=== PATIENT | female | born 1935 | race Hispanic/Latino ===

== ENCOUNTER → 2019-05-31 | Outpatient (CLI) | payer MEDICARE ==
[~2019-05-31] MED LIST: CARVEDILOL12.5 MG PO; CYCLOBENZAPRINE10 MG PO; GABAPENTIN300 MG PO; HYDRALAZINE HCL50 MG PO; HYDROCHLOROTHIA25 MG PO; IBUPROFEN400 MG PO; MONTELUKAST SOD10 MG PO; OMEGA 3 1,0001 EACH PO; PANTOPRAZOLE SO40 MG PO; RANITIDINE HCL150 M1 PO; SIMVASTATIN20 MG PO; SUCRALFATE1 GM PO; TEMAZEPAM15 MG PO
--- NOTE | 2019-06-03 15:06 | Diagnostic Imaging Report ---
EXAMINATION: CHEST 2 VIEWS INDICATION: Cough COMPARISON: None FINDINGS: LINES/TUBES:None LUNGS:The lungs are moderately inflated. No focal consolidation or pulmonary edema. PLEURA:No pleural effusion or pneumothorax. MEDIASTINUM:The cardia mediastinal silhouette is enlarged. Atherosclerotic calcifications of the thoracic aorta. BONES/SOFT TISSUES:Postoperative changes of right shoulder arthroplasty. Partial visualization of posterior lumbar fusion hardware. Degenerative changes of the thoracic spine. ABDOMEN:No free air under the diaphragm. IMPRESSION: No focal pneumonia or pulmonary edema. Cardiomegaly. Signed by: Robert Linder MD on 05/31/2019 12:42 PM
== END ==
LOC: RAD 11:30
PROVIDERS: ATTEND Internal Medicine
DX: R05 Cough (principal)
CPT/HCPCS: 71046

== ENCOUNTER 2019-06-10 13:44 | Observation (INO) | payer MEDICARE ==
[~2019-06-10] VITALS: Ht 157.5 cm; Wt 88.0 kg
--- OUTSIDE RECORDS SUMMARY | 2019-06-10 13:47 | XMS REPORT ---
Author Author [facility] Address Unknown Phone Unavailable Care Team Providers Care Conversion Developer Name Role Phone JUSTINO BRUSH Unavailable Unavailable Problems This patient has no known problems. Allergies, Adverse Reactions, Alerts This patient has no known allergies or adverse reactions. Medications This patient has no known medications. Results Test Description Test Time Test Comments Text Results Atomic Results Result Comments CHEST 2 VIEWS 2019-05-31 12:40:00 [place] [id number] Patient Name: ARNULFO DILLARD MR #: [id number] : 1935 Age/Sex: 83/F Req #: [id number] Adm Physician: Ordered by: JUSTINO BRUSH MD Report #: [id number] Location: [facility] Room/Bed: Procedure: [id number] DX/CHEST 2 VIEWS Exam Date: 05/31/19 Exam Time: 1210 REPORT STATUS: Signed EXAMINATION: CHEST 2 VIEWS INDICATION: Cough CO MPARISON: None FINDINGS: LINES/TUBES:None LUNGS:The lungs are moderately inflated. No focal consolidation or pulmonary edema. PLEURA:No pleural effusion or pneumothorax. MEDIASTINUM:The cardia mediastinal silhouette is enlarged. Atherosclerotic calcifications of the thoracic aorta. BONES/SOFT TISSUES:Postoperative changes of right shoulder arthroplasty. Partial visualization of posterior lumbar fusion hardware. Degenerative changes of the thoracic spine. ABDOMEN:No free air under the diaphragm. IMPRESSION: No focal pneumonia or pulmonary edema. Cardiomegaly. Signed by: Yusuf Velazquez MD on 05/31/2019 12:42 PM Dictated By: YUSUF VELAZQUEZ MD [id number] Transcribed By: MATTHEW on 05/31/19 1242 COPY TO: JUSTINO BRUSH MD
[2019-06-10 14:23] LABS: BASOPHILS % 0.4 % (0.0-1.0); EOSINOPHILS # (AUTO) 0.3 (0.0-0.4); EOSINOPHILS % 3.5 % (0.0-6.0); HEMOGLOBIN 10.3 g/dL (12.0-16.0); LYMPHOCYTES # (AUTO) 2.1 (1.0-3.2); LYMPHOCYTES % 28.7 % (18.0-39.1); MEAN CORPUSCULAR HEMOGLOBIN 29.9 pg (28-32); MEAN CORPUSCULAR HGB CONC 33.2 g/dL (31-35); MEAN CORPUSCULAR VOLUME 90.1 fL (81-99); MONOCYTES % 13.7 % (4.4-11.3); NEUTROPHILS # (AUTO) 3.8 (2.1-6.9); NEUTROPHILS % 53.1 % (38.7-80.0); PLATELET COUNT 198 x10e3/uL (140-360); RED BLOOD COUNT 3.44 x10e6/uL (3.6-5.1); RED CELL DISTRIBUTION WIDTH 13.8 % (11.7-14.4)
[2019-06-10 15:09] LABS: ALANINE AMINOTRANSFERASE 27 IU/L (0-55); ALBUMIN 3.4 g/dL (3.5-5.0); ALBUMIN/GLOBULIN RATIO 1.1 (0.8-2.0); ALKALINE PHOSPHATASE 77 IU/L (40-150); ANION GAP 10.6 mmol/L (8-16); BLOOD UREA NITROGEN 15 mg/dL (7-26); BUN/CREATININE RATIO 17 (6-25); CALCIUM 9.7 mg/dL (8.4-10.2); CARBON DIOXIDE 28 mmol/L (22-29); CHLORIDE 101 mmol/L (98-107); CREATINE KINASE 209 IU/L (29-168); CREATININE, SERUM 0.88 mg/dL (0.57-1.11); EST GLOMERULAR FILTRATION RATE > 60 ML/MIN (60-); GLUCOSE 88 mg/dL (74-118); POTASSIUM 3.6 mmol/L (3.5-5.1); SODIUM 136 mmol/L (136-145)
[2019-06-10] MEDS ORDERED: ONDANSETRON HCL INJ 2MG/ML 2ML 2 MG/ML VIAL IV PRN (16:00)
[2019-06-10] MEDS ORDERED: MORPHINE SULFATE 2 MG/ML SYR 1ML IV PRN (16:00)
[2019-06-10] MEDS ORDERED: MORPHINE SULFATE INJ 4 MG/ML INJ 1ML IV PRN (16:15)
[2019-06-10] MEDS ORDERED: HYDROCHLOROTHIA25 MG PO (16:22)
[2019-06-10] MEDS ORDERED: CARVEDILOL12.5 MG PO (16:22)
[2019-06-10] MEDS ORDERED: MONTELUKAST SOD10 MG PO (16:22)
[2019-06-10] MEDS ORDERED: CYCLOBENZAPRINE10 MG PO (16:22)
[2019-06-10] MEDS ORDERED: GABAPENTIN300 MG PO (16:22)
[2019-06-10] MEDS ORDERED: IBUPROFEN400 MG PO (16:22)
[2019-06-10] MEDS ORDERED: OMEGA 3 1,0001 EACH PO (16:22)
[2019-06-10] MEDS ORDERED: SIMVASTATIN20 MG PO (16:22)
[2019-06-10] MEDS ORDERED: TEMAZEPAM15 MG PO (16:22)
[2019-06-10] MEDS ORDERED: SUCRALFATE1 GM PO (16:22)
[2019-06-10] MEDS ORDERED: PANTOPRAZOLE SO40 MG PO (16:22)
[2019-06-10] MEDS ORDERED: HYDRALAZINE HCL50 MG PO (16:22)
[2019-06-10] MEDS ORDERED: RANITIDINE HCL150 M1 PO (16:22)
--- NOTE | 2019-06-10 16:34 | NUR ---
SHAMPOOER AT BEDSIDE
[2019-06-10] MEDS ORDERED: HYDRALAZINE HCL 20 MG/ML VIAL IV ONE (16:42)
--- NOTE | 2019-06-10 17:10 | NUR ---
PATIENT AMBULATED TO BATHROOM WITH WALKER
--- NOTE | 2019-06-10 17:17 | Diagnostic Imaging Report ---
EXAMINATION: CHEST 2 VIEWS INDICATION: Chest pain COMPARISON: None FINDINGS: Study is limited by underpenetration and patient body habitus. LINES/TUBES:EKG leads overlie the chest. LUNGS:The lungs are moderately inflated. Patchy opacity at the left lung base. PLEURA:No pleural effusion or pneumothorax. MEDIASTINUM:Cardiomediastinal silhouette is stably enlarged. BONES/SOFT TISSUES:No acute osseous injury. Status post right shoulder arthroplasty. ABDOMEN:No free air under the diaphragm. IMPRESSION: Low lung volumes. Patchy opacity at the left lung base, more likely subsegmental atelectasis than superimposed aspiration or pneumonia. Stable cardiomegaly. Signed by: Robert Linder MD on 06/10/2019 5:14 PM
--- NOTE | 2019-06-10 18:30 | NUR ---
PATIENT PLACED ON HOSPITAL BED
--- NOTE | 2019-06-10 18:42 | Diagnostic Imaging Report ---
EXAMINATION: CT of the chest with contrast, PE protocol. TECHNIQUE: Spiral CT images of the chest were performed from the lung apices through the level of the adrenal glands after the IV administration of 100 cc of Isovue 370. Thin section reconstructions were obtained with special concentration on the pulmonary arteries. Coronal and sagittal reformatted images were performed. COMPARISON: <none> CLINICAL HISTORY:Chest pressure, chest pain, elevated the dimer DISCUSSION: Exam limited as it was acquired during partial expiratory phase Lungs: No filling defects are identified in the main, right or left pulmonary arteries to their segmental levels, to suggest pulmonary embolism. Increased attenuation of the lung parenchyma secondary to scan acquired during partial expiratory phase. No consolidation, nodules or masses. Linear opacity in the left upper lobe (coronal image 57), likely representing subsegmental atelectasis or scarring. Airways are clear, without endobronchial lesions. Pleura: <There is no evidence of pleural effusion or pneumothorax.> Heart and mediastinum: Thyroid is unremarkable. Heart size is normal. No pericardial effusion. Atherosclerotic calcification of the coronary arteries and thoracic aorta. Aorta is nonaneurysmal. Main pulmonary artery normal in caliber. Lymph nodes: No mediastinal, hilar or axillary adenopathy. Abdomen: The visualized portions of the spleen, pancreas, adrenals and kidneys are unremarkable. Mild nodularity of the hepatic contour. No focal lesions in the visualized portions of this noncontrast exam. Gallbladder is unremarkable Bones and soft tissues: No aggressive lytic lesions. Multiple level degenerative disc changes in the thoracic spine. Soft tissues are grossly unremarkable. IMPRESSION: 1. No CT evidence of pulmonary embolism. 2. No consolidation, pulmonary nodules or masses. Left upper lobe subsegmental atelectasis versus scarring. 3. Mild nodularity of the hepatic contour suggesting cirrhosis. Signed by: Dr. Stuart Gonzalez M.D. on 06/10/2019 6:38 PM
[2019-06-10] MEDS ORDERED: IOPAMIDOL 370 MG/ML 200 ML INFUS..BTL INJ ONE (18:47)
[2019-06-10] MEDS ORDERED: SODIUM CHLORIDE 0.9% 50ML 50 ML ONE (18:47)
--- NOTE | 2019-06-10 20:04 | NUR ---
PT PLACED ON TELE BOX 21
[2019-06-10 20:27] VITALS: BP 138/66
--- NOTE | 2019-06-10 20:27 | NUR ---
PT ARRIVED ON THE FLOOR VIA WHEELCHAIR AT 2026. RESPIRATION IS EVEN AND UNLABORED, NO DISTRESS NOTED. PT ORIENTED TO ROOM, BED IN THE LOWEST POSITION, LOCKED, BED ALARM ON, AND CALL LIGHT WITHIN REACH. ADMISSION AND HEAD TO TOE ASSESSMENT COMPLETE. WILL CONTINUE TO MONITOR.
[2019-06-10 20:30] VITALS: BP 138/66
[2019-06-10 23:27] LABS: CREATINE KINASE MB 3.7 ng/mL (0-5.0)
[2019-06-10 23:54] VITALS: BP 138/66
[2019-06-11] VITALS (8 sets, daily range): BP systolic 115–160; BP diastolic 55–84
[2019-06-11 06:15] LABS: CREATINE KINASE MB 3.3 ng/mL (0-5.0)
--- NOTE | 2019-06-11 06:50 | NUR ---
Walking rounds done and report received. Patient is awake, alert and able to make needs known. She currently denies CP at this time. Tele #[phone], [phone]. POC discussed. Patient instructed to call for assistance as needed and verbalized understanding. Bed in lowest position, locked and call murry within reach.
[2019-06-11] MEDS: OMEGA 3 POLYUNSAT FATTY ACIDS 1000 MG SOFTGEL PO SCH ×3 (13:00→20:24)
--- NOTE | 2019-06-11 14:51 | Diagnostic Imaging Report ---
EXAM: Complete Abdominal Ultrasound INDICATION: Not provided. COMPARISON: None. TECHNIQUE: Transverse and longitudinal images of the upper abdomen were obtained. FINDINGS: Liver: Size: 14.1 cm in the right midclavicular line, normal Appearance: Normal echogenicity, nodular contour Mass: No focal masses Spleen: Size: 11.5 cm in length, normal Echogenicity: Normal Mass: No focal masses Gallbladder: Stones/Sludge: None Wall: 0.3 cm Appearance: No pericholecystic fluid or hydrops. Sonographic Wise's Sign: Negative Bile Ducts: Intrahepatic Ducts: No dilatation Extrahepatic Ducts: Common bile duct measures 0.3 cm, no dilatation Pancreas: Not well visualized. Right Kidney: Size: 10 cm Echogenicity: Normal Parenchymal thickness: Decreased Collecting System: No hydronephrosis Stone: None Cyst/Mass: Midpole cyst measuring 1.6 x 1.3 x 1.4 cm. Left Kidney: Size: 9.8 cm Echogenicity: Normal Parenchymal thickness: Normal Collecting System: No hydronephrosis Stone: None Cyst/Mass: Midpole simple cyst measuring 3.6 x 3.5 x 3.4 cm. Vessels: Aorta: Visualized aorta is unremarkable. Distal aorta is not well visualized. Inferior Vena Cava: Visualized portions are normal Main Portal Vein: 0.9 cm, normal size with hepatopetal flow. Free Fluid: No ascites or pleural effusion IMPRESSION: Nodular liver contour, suggestive of cirrhotic changes. No focal masses. Bilateral simple renal cysts. Mild right renal cortical atrophy. Signed by: Dr. Oscar Robbins MD on 06/11/2019 2:47 PM
[2019-06-11] MEDS ORDERED: FUROSEMIDE INJ 10 MG/ML 4 ML VIAL IV NR (15:00)
[2019-06-11] MEDS: FAMOTIDINE 20 MG TAB PO SCH (17:09)
[2019-06-11] MEDS: SUCRALFATE 1 GM TAB PO SCH (17:09)
[2019-06-11] MEDS: HYDRALAZINE HCL 25 MG TAB PO SCH (17:10)
[2019-06-11] MEDS: GABAPENTIN 300 MG CAP PO SCH (17:10)
[2019-06-11] MEDS: CARVEDILOL 12.5 MG TAB PO SCH (17:10)
--- NOTE | 2019-06-11 18:19 | Consultation ---
DATE OF CONSULTATION: 06/11/2019 Cardiology Consultation REASON FOR CONSULTATION: Chest discomfort and shortness of breath. HISTORY OF PRESENT ILLNESS: Ms. Leach is an 83-year-old lady with past medical history of hypertension, hypercholesteremia, GERD, hiatal hernia, and obesity, who is hospitalized with two-day history of progressively worsening abdominal bloating, chest pressure sensation, difficulty breathing, three pillow orthopnea, and swelling in both of her legs. She reports exercising at a very low workload that results in worsened breathing and overall has pretty constant chest pressure, substernal, no radiation, constant, no exacerbating or alleviating factors. Overall, she was in her usual state of health up until about a week ago. She was instructed to stop her diuretic therapy on account of worsening kidney function. Since that time, she has been progressively declining in her functional state. PAST MEDICAL HISTORY: 1. Hypertension, essential. 2. Hypercholesteremia. 3. Gastritis/hiatal hernia. PAST SURGICAL HISTORY: 1. History of lumbar spine surgery. 2. History of bilateral total knee replacement surgery. 3. History of right arm surgery. FAMILY HISTORY: Mother at 80 with a pulmonary embolism. Father at young age, had liver cancer. No premature family history of coronary artery disease. SOCIAL HISTORY: She is a lifelong nonsmoker. Reports one cup of wine with meals. Denies any illicit drug use. ALLERGIES: NO KNOWN DRUG ALLERGIES. HOME MEDICATIONS: Include: 1. Coreg 25 mg b.i.d. 2. Cyclobenzaprine 20 mg daily. 3. Gabapentin 300 mg b.i.d. 4. Hydralazine 50 mg b.i.d. 5. Hydrochlorothiazide 25 mg daily. 6. Ibuprofen 800 mg b.i.d. 7. Singulair 10 mg daily. 8. [place]-3 one tablet daily. 9. Protonix 20 mg daily. 10. Zantac 150 mg b.i.d. 11. Zocor 20 mg daily. 12. Carafate 1 g t.i.d. 13. Temazepam 30 mg at bedtime. REVIEW OF SYSTEMS: GENERAL: Denies any fevers or chills. Positive for weight gain. HEENT: No headaches, visual complaints, sore throat, or stuffy nose. RESPIRATORY: Denies any pleuritic component to the chest pain, has occasional cough. Has severe exertional dyspnea as noted above. CARDIOVASCULAR: As per HPI. Denies any subjective palpitations, syncope, or near syncope. GI: Positive for GERD. No bright red blood per rectum, melena, or hematemesis. : Denies any dysuria, pyuria, or change in urinary frequency. MUSCULOSKELETAL: Positive for arthritis in lower back and knees. HEMATOLOGIC: Positive for easy bruising. No bleeding. ID: No known infectious issues. NEUROLOGIC: Denies any focal weakness, numbness, tingling, seizures, headaches, TIA, or stroke. Remainder review of systems negative, otherwise as mentioned. PHYSICAL EXAMINATION: VITAL SIGNS: Height of 62 inches, weight of 204 pounds, BMI is 37.4. Temperature of 96.7, pulse 71, respiratory rate 18, blood pressure 149/65, and O2 saturation 96% on room air. GENERAL: This is a well-nourished, obese lady, who is currently in no apparent distress. HEENT: Normocephalic and atraumatic. Pupils are equal, round, and reactive to light. Extraocular movements are intact. Oropharynx is clear. NECK: Obese. Limited exam due to habitus. Faint bilateral carotid bruits. CARDIOVASCULAR: Regular rate and rhythm. Normal S1 and S2, 3/6 systolic ejection murmur at the right upper sternal border. LUNGS: Show diminished bibasilar breath sounds and diminished air entry with some slight crackles. ABDOMEN: Soft, nontender, and obese. Normoactive bowel sounds. Limited exam secondary to habitus. BACK: No costovertebral angle tenderness. EXTREMITIES: Warm with 2+ edema to the mid shins level. There are bilateral total knee replacement scars. 1+ pedal pulses. NEUROLOGIC: Cranial nerves II through XII are intact. Strength is 5/5. Grossly nonfocal. PSYCHIATRIC: Normal fluent speech. Appropriate affect. No anxiety or delusions. LABORATORY DATA: White count of 7.2, hemoglobin 10.3, hematocrit 31.0, and platelets of 198. Sodium 136, potassium 3.6, chloride 101, bicarbonate 28, BUN 15, creatinine 0.88, glucose of 88, calcium of 9.7, AST 27, ALT 27, alkaline phosphatase 77, total protein 6.6, and albumin 3.4. BNP is 218. Troponin went from less than 0.001 to 0.004 to 0.013. D-dimer is 543. Chest x-ray shows low lung volumes and patchy left lung base opacity. Chest CT shows no PE, no consolidation or masses. Left upper lobe segmental atelectasis, mild nodularity of the hepatic contour concerning for cirrhosis. EKG reveals normal sinus rhythm, inferior Q-waves in leads III and aVF, but no ST-T wave changes. DIAGNOSES: 1. Acute on chronic decompensated diastolic heart failure by history and exam. 2. Chest discomfort with wide differential diagnosis. 3. Bilateral lower extremity edema. 4. Suspicion for aortic stenosis. 5. Morbid obesity. 6. Hypertension. 7. Hypercholesteremia. PLAN/RECOMMENDATIONS: 1. From a cardiovascular standpoint, we will go ahead and give her 80 mg IV Lasix x1 here and re-evaluate her symptoms tomorrow morning. We will check labs in the a.m. 2. Aggressive risk factor modification and medical therapy. 3. Reviewed echocardiogram showing preserved left ventricular function, however, there appears to be aortic valve that is trileaflet and significant calcification on it. By the way, the valve leaflet excursions are suspect at least moderate aortic stenosis, however, quality of interrogation of was inadequate. We will repeat limited echo with goal towards re-evaluating stenosis severity. 4. Agree with current antihypertensive regimen, which include beta tony, hydralazine, etc. 5. Telemetry monitoring. 6. We will continue to follow this patient. Thank you for this referral. MD REYES Diaz/YONI /[id number]
--- NOTE | 2019-06-11 18:45 | NUR ---
Received bedside report from day shift RN. The patient is laying on the bed, not in distress. Bed height low, call light within reach, wheels locked, and side rails up x2.
--- NOTE | 2019-06-11 19:00 | NUR ---
Walking rounds done. call murry within reach.
[2019-06-11] MEDS: SIMVASTATIN 20 MG TAB PO SCH (20:24)
[2019-06-12] VITALS (7 sets, daily range): BP systolic 107–145; BP diastolic 52–71
[2019-06-12 06:03] LABS: BASOPHILS % 0.5 % (0.0-1.0); EOSINOPHILS # (AUTO) 0.2 (0.0-0.4); HEMATOCRIT 31.7 % (34.2-44.1); HEMOGLOBIN 10.3 g/dL (12.0-16.0); LYMPHOCYTES # (AUTO) 1.7 (1.0-3.2); LYMPHOCYTES % 27.9 % (18.0-39.1); MEAN CORPUSCULAR HEMOGLOBIN 30.1 pg (28-32); MEAN CORPUSCULAR HGB CONC 32.5 g/dL (31-35); MEAN CORPUSCULAR VOLUME 92.7 fL (81-99); MONOCYTES % 15.8 % (4.4-11.3); NEUTROPHILS # (AUTO) 3.2 (2.1-6.9); NEUTROPHILS % 52.6 % (38.7-80.0); PLATELET COUNT 185 x10e3/uL (140-360); RED BLOOD COUNT 3.42 x10e6/uL (3.6-5.1); RED CELL DISTRIBUTION WIDTH 14.4 % (11.7-14.4)
[2019-06-12 06:22] LABS: ALBUMIN 3.1 g/dL (3.5-5.0); ANION GAP 12.3 mmol/L (8-16); CALCIUM 9.4 mg/dL (8.4-10.2); CREATININE, SERUM 0.93 mg/dL (0.57-1.11); POTASSIUM 3.3 mmol/L (3.5-5.1)
[2019-06-12 06:23] LABS: CHOL/HDL RATIO 3.8 (3.0-3.6)
--- NOTE | 2019-06-12 06:45 | NUR ---
Walking rounds and report received. Patient is resting in bed without any complaints voiced. Bed in lowest position, locked, bed alarm on and call murry within reach.
[2019-06-12 07:13] LABS: THYROID STIMULATING HORMONE 1.278 uIU/mL (0.350-4.940)
[2019-06-12] MEDS: FAMOTIDINE 20 MG TAB PO SCH ×2 (08:00→16:53)
[2019-06-12] MEDS: SUCRALFATE 1 GM TAB PO SCH ×3 (08:00→16:53)
[2019-06-12] MEDS ORDERED: POTASSIUM CHLORIDE 20 MEQ TAB CR PO NR ×2 (08:06→11:15)
[2019-06-12] MEDS: HYDRALAZINE HCL 25 MG TAB PO SCH ×2 (08:23→16:46)
[2019-06-12] MEDS: CARVEDILOL 12.5 MG TAB PO SCH ×2 (08:23→16:46)
[2019-06-12] MEDS: GABAPENTIN 300 MG CAP PO SCH ×2 (08:24→16:53)
[2019-06-12] MEDS: OMEGA 3 POLYUNSAT FATTY ACIDS 1000 MG SOFTGEL PO SCH ×4 (08:24→20:30)
[2019-06-12] MEDS ORDERED: FUROSEMIDE 40 MG TAB PO SCH (09:00)
[2019-06-12] MEDS ORDERED: MONTELUKAST SODIUM 10 MG TAB PO SCH (09:00)
[2019-06-12] MEDS ORDERED: PANTOPRAZOLE SOD 40 MG TABEC PO SCH (09:00)
[2019-06-12] MEDS ORDERED: CYCLOBENZAPRINE HCL 10 MG TAB PO SCH (09:00)
--- NOTE | 2019-06-12 15:30 | NUR ---
PER DR. RODRIGEZ PATIENT MAY GO HOME IF DR. GALVAN CLEARS TO DISCHARGE HOME.
--- NOTE | 2019-06-12 18:13 | NUR ---
Dr. Harris called to clarify if patient is cleared from cardiology standpoint to go home. Unable to leave message on phone, voicemail is full.
--- NOTE | 2019-06-12 18:45 | NUR ---
Received bedside report from day shift RN. The patient is laying on the bed, not in distress. Bed height low, call light within reach, wheels locked, and side rails up x2. The patient will be discharged later tonight.
--- NOTE | 2019-06-12 19:00 | NUR ---
PER DR. BANUELOS PATIENT MAY GO HOME TODAY. SHE WILL CONTINUE HCTZ FOR NOW, AND FOLLOW UP WITH DR. GALVAN IN THE OFFICE ON 06/15/19 OR 06/16/19.
[2019-06-12] MEDS: SIMVASTATIN 20 MG TAB PO SCH (20:30)
[2019-06-12] MEDS ORDERED: TEMAZEPAM 15 MG CAP PO SCH (21:00)
--- NOTE | 2019-06-12 21:40 | NUR ---
Personal belongings packed and taken by daughter. Telemetry device removed and IV as well. Catheter intact. Band-aid placed over. Patient was taken with WC to the front lobby to the daughter's vehicle. Discharge documents provide to the patient and signed.
--- NOTE | 2019-07-15 00:44 | Discharge Summary ---
CHIEF COMPLAINT: Mid chest pain. FINAL DIAGNOSES: Diastolic congestive failure, hypertension, hiatal hernia, hypokalemia. HOSPITAL COURSE: An 83-year-old female with known history of hypertension, GERD, hiatal hernia, brought to the ER with a 2-day history of intermittent mid chest pain, described as pressure associated with shortness of breath. She describes episode on the day of admission was more severe. No diaphoresis. No nausea or vomiting, but the patient has had postprandial bloating. She was monitored and evaluated in the emergency room. Studies were carried out. The patient was revealing a distended, nontender abdomen. Review of x-rays and review of lab led to admission regarding chest pain, shortness of breath, hypertension, hiatal hernia, GERD, rule out gallbladder disease. With admission, we will be monitoring cardiac enzymes. We will be initiating PPI treatments. She will be undergoing evaluation for gallbladder. With admission regarding the complaints of chest discomfort along with shortness of breath, the patient did undergo cardiac followup and final evaluation by Dr. Harris, impression was made of [id number] decompensated diastolic heart failure by history and exam. Chest discomfort with a wide differential diagnosis, bilateral lower extremity edema, suspicion for aortic stenosis, morbid obesity, hypertension, hypercholesterolemia. He stated from a cardiovascular standpoint, we will begin treatment with 80 mg of Lasix. Re-evaluate symptoms. Reassess labs. Aggressive risk factor modification and medical therapy. Review of an echocardiogram appears to show an aortic valve that is trileaflet and significant calcification on it. The findings suspect for at least moderate aortic stenosis; however, quality of interrogation of was inadequate. We will be repeating the echo. Agree with current cardiac medications. The patient began treatment on the Med-Surg floor, was on a cardiac diet. Vital signs are being watched closely. Blood pressure medications will be adjusted for better control. Laboratory studies are being carried out. The patient was feeling much better, was in no acute distress, was continued on her IV Lasix, was having issues with hypokalemia and the patient was receiving replenishment medications. The patient responding further well, was cleared for discharge and was released home. IMAGING: Chest x-ray shows low lung volumes. Patchy opacity in the left lung base, more likely subsegmental atelectasis and superimposed aspiration pneumonia. Stable cardiomegaly. Chest CT shows no CT evidence of pulmonary embolism. No consolidation, pulmonary nodules. Or masses. Left upper lobe segmental atelectasis versus scarring. Mild nodularity of the hepatic contour suggesting cirrhosis. Abdomen ultrasound finding shows nodular liver contour suggestive of cirrhotic changes. No focal masses. Bilateral simple renal cysts. Mild right renal cortical atrophy. Lower extremity Dopplers showed no evidence of DVT bilaterally. LABORATORY STUDIES: Initial CBC; normal white count, H and H were 10.3 and 31.0, platelets normal. Followup CBC was basically normal, the same in comparison. Chemistries; initial panel shows stable electrolytes. Kidney function stable. Glucose normal. Three sets of cardiac enzymes to be stable. BNP is 218.4. Potassium did fall to 3.3, was then started on replenishment medications. Final glucose 131. The patient continued to show stability, was cleared for discharge by Cardiology, was released home in good condition. IVs were discontinued. With discharge, the patient continued on a cardiac diet. No equipments or supplies were necessary. No drain or Zhou was needed. Activity level as directed by me as well as by Dr. Harris. The patient will be returning to her PCP within 7 to 10 days. She will be following back up with Dr. Harris for his instruction for further cardiac evaluation. She will be continued on carvedilol 25 mg p.o. b.i.d., cyclobenzaprine 10 mg two tablets p.o. daily, gabapentin 300 mg p.o. b.i.d., hydralazine 50 mg p.o. b.i.d., hydrochlorothiazide 25 mg p.o. daily, ibuprofen 800 mg p.o. b.i.d., montelukast sodium 10 mg p.o. daily, omega-3 fish oil 1000 mg softgel tablet one tablet q.i.d., Protonix 40 mg half a tablet p.o. daily, ranitidine 150 mg p.o. b.i.d., simvastatin 20 mg p.o. daily, sucralfate 1 g p.o. t.i.d., temazepam 30 mg p.o. daily at bedtime for insomnia. The patient will be contacting her PCP if they have questions or concerns or recurrence of similar symptoms. Dictated by OSKAR Landis MD HIPOLITO Turner/YONI /[id number]
== END 2019-06-12 21:40 | disposition home or self-care (01) ==
LOC: ER 13:44 → ERHOLD 15:55 → MED/SURG3 20:38
DX: I11.0 Hypertensive heart disease with heart failure (principal); I50.33 Acute on chronic diastolic (congestive) heart failure; R07.9 Chest pain, unspecified; I49.3 Ventricular premature depolarization; K21.9 Gastro-esophageal reflux disease without esophagitis; K44.9 Diaphragmatic hernia without obstruction or gangrene; E78.00 Pure hypercholesterolemia, unspecified; E66.9 Obesity, unspecified; Z68.35 Body mass index [BMI] 35.0-35.9, adult
CPT/HCPCS: 36415 ×3; 71046; 71260; 76700; 80053 ×2; 80061; 82550 ×2; 82553 ×2; 83880; 84443; 84484 ×2; 85025 ×2; 85379; 93005; 93306; 93308; 93970; 99284; G0378 ×3; J0360; J1940; Q9967; S0164

== ENCOUNTER → 2019-06-10 | Outpatient (CLI) | payer MEDICARE, OTHER | LOC: US 13:24 | PROVIDERS: ATTEND Internal Medicine | DX: N18.3 Chronic kidney disease, stage 3 (moderate) (principal) ==

== ENCOUNTER 2019-07-28 11:55 | Emergency (ER) | payer OTHER, MEDICARE ==
[~2019-07-28] VITALS: Ht 157.5 cm; Wt 88.0 kg
[~2019-07-28 11:55] MED LIST changes: -CARVEDILOL3.125 MG PO; -ESIDRIX25 MG PO; -FUROSEMIDE40 MG PO; -KLOR-CON 1010 MEQ PO; -MELATONIN1 MG PO; -PANTOPRAZOLE SO20 MG PO; -SIMVASTATIN10 MG PO
--- NOTE | 2019-07-28 12:56 | Diagnostic Imaging Report ---
CT BRAIN WO, CT CERVICAL SPINE WO HISTORY: Fall COMPARISON: None. TECHNIQUE: Axial noncontrast CT images were obtained through the head and cervical spine. Coronal and sagittal reconstructions obtained from the axial data. One or more of the following dose reduction techniques were used: Automated exposure control, adjustment of the mA and/or kV according to patient size, and/or utilization of iterative reconstruction technique. DISCUSSION: HEAD CT: Scalp/Skull: Unremarkable. Brain sulci: Mildly prominent. Ventricles: Compensatory dilatation. Extra-axial spaces: No masses or fluid collections. Carotid siphon calcifications are present. Parenchyma: Mild periventricular white matter hypodensities are likely chronic microvascular ischemic changes. Otherwise, no masses, hemorrhage, or large vascular territory acute infarct. Dural sinuses: No abnormal densities. Sellar/Suprasellar region: Intact. Skull base: Intact. Incidental findings: None. CERVICAL SPINE CT: Bone demineralization limits evaluation. Cervical lordosis is straightened. There is no significant scoliosis. No definite acute fracture or compression deformity is seen. The craniocervical junction is intact. No gross spinal canal masses are seen. The paravertebral and paraspinal soft tissues are unremarkable. Advanced lower cervical spondylotic changes are present. There is at least mild canal stenosis at C5-C6 due to posterior disc ossify complex. Multilevel bilateral facet arthrosis and atlantoaxial arthrosis are also present. Minimal grade 1 anterolisthesis of C7 on T1 and T1 on T2 are likely due to facet arthrosis. Incidental findings: Mildly calcified bilateral carotid arteries have a retropharyngeal course. IMPRESSION: Head CT: 1. No acute intracranial abnormalities. 2. Mild supratentorial chronic microvascular ischemic change and generalized cerebral volume loss. Cervical Spine CT: 1. No acute osseous abnormalities in the cervical spine. 2. Advanced lower cervical spondylosis. Signed by: Dr. Hugo Bundy M.D. on 07/28/2019 12:53 PM
--- NOTE | 2019-07-28 13:18 | Diagnostic Imaging Report ---
EXAMINATION: CHEST 2 VIEWS INDICATION: Shortness of breath COMPARISON: Chest radiograph of 06/10/2019 FINDINGS: LINES/TUBES:None LUNGS:The lungs are well-inflated. No focal consolidation or pulmonary edema. PLEURA:No pleural effusion or pneumothorax. MEDIASTINUM:The cardiomediastinal silhouette appears normal in size and shape. Atherosclerotic calcifications of the thoracic aorta. BONES/SOFT TISSUES:Partial visualization of right shoulder arthroplasty hardware. Severe degenerative changes of the left glenohumeral joint. Multilevel degenerative changes of the visualized spine. ABDOMEN:No free air under the diaphragm. IMPRESSION: No focal pneumonia or pulmonary edema. Severe left glenohumeral joint degenerative changes. Signed by: Robert Linder MD on 07/28/2019 1:15 PM
== END 2019-07-28 13:48 | disposition home or self-care (01) ==
LOC: ER 11:55
DX: S00.83XA Contusion of other part of head, initial encounter (principal); S80.02XA Contusion of left knee, initial encounter; S80.01XA Contusion of right knee, initial encounter; W01.0XXA Fall on same level from slipping, tripping and stumbling without subsequent striking against object, initial encounter; Y93.01 Activity, walking, marching and hiking; Y92.238 Other place in hospital as the place of occurrence of the external cause; I10 Essential (primary) hypertension; K21.9 Gastro-esophageal reflux disease without esophagitis; E78.5 Hyperlipidemia, unspecified
CPT/HCPCS: 70450; 71046; 72125; 99284

== ENCOUNTER → 2019-07-28 | Outpatient (CLI) | payer MEDICARE ==
[~2019-07-28] MED LIST changes: +CARVEDILOL3.125 MG PO; +ESIDRIX25 MG PO; +FUROSEMIDE40 MG PO; +KLOR-CON 1010 MEQ PO; +MELATONIN1 MG PO; +PANTOPRAZOLE SO20 MG PO; +SIMVASTATIN10 MG PO
== END ==
LOC: RAD 11:31
PROVIDERS: ATTEND Internal Medicine
DX: R06.02 Shortness of breath (principal)

== ENCOUNTER 2019-08-06 18:09 | Inpatient (IN) | payer MEDICARE ==
[~2019-08-06] VITALS: Ht 157.5 cm; Wt 86.2 kg
[2019-08-06 18:39] LABS: BASOPHILS % 0.4 % (0.0-1.0); EOSINOPHILS # (AUTO) 0.5 (0.0-0.4); EOSINOPHILS % 5.8 % (0.0-6.0); HEMATOCRIT 31.2 % (34.2-44.1); HEMOGLOBIN 10.4 g/dL (12.0-16.0); LYMPHOCYTES # (AUTO) 1.9 (1.0-3.2); MEAN CORPUSCULAR HEMOGLOBIN 29.6 pg (28-32); MEAN CORPUSCULAR HGB CONC 33.3 g/dL (31-35); MEAN CORPUSCULAR VOLUME 88.9 fL (81-99); MONOCYTES # (AUTO) 1.2 (0.2-0.8); MONOCYTES % 14.8 % (4.4-11.3); NEUTROPHILS # (AUTO) 4.2 (2.1-6.9); NEUTROPHILS % 53.7 % (38.7-80.0); PLATELET COUNT 207 x10e3/uL (140-360); RED BLOOD COUNT 3.51 x10e6/uL (3.6-5.1); RED CELL DISTRIBUTION WIDTH 13.5 % (11.7-14.4)
[2019-08-06 18:52] LABS: INR 1.1; PARTIAL THROMBOPLASTIN TIME 23.5 seconds (23.8-35.5); PROTHROMBIN TIME 14.7 seconds (11.9-14.5)
[2019-08-06 18:59] LABS: ALBUMIN 3.5 g/dL (3.5-5.0); ALBUMIN/GLOBULIN RATIO 0.9 (0.8-2.0); ANION GAP 12.9 mmol/L (8-16); CALCIUM 9.8 mg/dL (8.4-10.2); CREATININE, SERUM 1.01 mg/dL (0.57-1.11)
[2019-08-06] MEDS ORDERED: ASPIRIN 81 MG CHEW TAB PO NR (19:00)
[2019-08-06 19:16] LABS: POTASSIUM 2.9 mmol/L (3.5-5.1)
[2019-08-06] MEDS ORDERED: POTASSIUM CHLORIDE 20 MEQ TAB CR PO NR (19:16)
[2019-08-06 19:20] LABS: CREATINE KINASE MB 2.9 ng/mL (0-5.0); THYROID STIMULATING HORMONE 0.659 uIU/mL (0.350-4.940)
--- NOTE | 2019-08-06 19:30 | Diagnostic Imaging Report ---
EXAMINATION: CHEST SINGLE (PORTABLE) INDICATION: Bilateral leg swelling, short of breath COMPARISON: Chest radiograph 07/28/2019 FINDINGS: AP view TUBES and LINES: None. LUNGS: Lungs are well inflated. Lungs are clear. There is no evidence of pneumonia or pulmonary edema. PLEURA: No pleural effusion or pneumothorax. HEART AND MEDIASTINUM: The cardiomediastinal silhouette is unremarkable. Aortic arch calcifications. BONES AND SOFT TISSUES: No acute osseous lesion. Soft tissues are unremarkable. Partially visualized right shoulder arthroplasty hardware appears intact. Severe degenerative changes in the left shoulder and degenerative changes in the lumbar spine. UPPER ABDOMEN: No free air under the diaphragm. IMPRESSION: No acute thoracic radiographic abnormality. Signed by: Ghassan Luna DO on 08/06/2019 7:27 PM
[2019-08-06] MEDS ORDERED: ASPIRIN 325 MG TAB EC PO ONE (19:32)
[2019-08-06 19:40] LABS: BILIRUBIN,URINE NEGATIVE (NEGATIVE); CLARITY,URINE CLEAR (CLEAR); COLOR,URINE YELLOW (YELLOW); KETONES,URINE NEGATIVE (NEGATIVE); LEUKOCYTE ESTERASE ,URINE NEGATIVE (NEGATIVE); NITRITE,URINE NEGATIVE (NEGATIVE); PROTEIN,URINE DIPSTICK NEGATIVE (NEGATIVE); URINE UROBILINOGEN 0.2 mg/dL (0.2 - 1)
[2019-08-06] MEDS ORDERED: CARVEDILOL3.125 MG PO (20:17)
[2019-08-06] MEDS ORDERED: KLOR-CON 1010 MEQ PO (20:17)
[2019-08-06] MEDS ORDERED: SIMVASTATIN10 MG PO (20:17)
[2019-08-06] MEDS ORDERED: ESIDRIX25 MG PO (20:17)
[2019-08-06] MEDS ORDERED: PANTOPRAZOLE SO20 MG PO (20:17)
[2019-08-06 20:34] LABS: BACTERIA,URINE RARE /HPF; EPITHELIAL CELLS,URINE FEW /LPF
[2019-08-06] MEDS ORDERED: FUROSEMIDE40 MG PO (20:38)
[2019-08-06] MEDS ORDERED: SODIUM CHLORIDE FLUSH 10 ML SYR INJ PRN (20:45)
[2019-08-06] MEDS ORDERED: ONDANSETRON HCL INJ 2MG/ML 2ML 2 MG/ML VIAL IV PRN (20:45)
[2019-08-06] MEDS ORDERED: ASPIRIN 81 MG CHEW TAB PO ONE (20:45)
[2019-08-06 21:33] VITALS: BP 172/87
--- NOTE | 2019-08-06 21:33 | NUR ---
RECEIVED PT TO UNIT ROOM 204 AT THIS TIME.PT IS AAO X 3.NO S/S OF ACUTE DISTRESS NOTED.RESPIRATIONS EVEN/NON LABORED.PT HAS 20G IV TO RIGHT AC,INTACT AND PATENT.SNACKS PROVIDED TO PT.PT'S DAUGHTER IN LAW AT BEDSIDE.BED POSITIONED IN THE LOWEST/LOCKED.INSTRUCTED PT TO CALL FOR ASSISTANCE NEEDED BY PRESSING CALL LIGHT.CALL LIGHT WITHIN EASY REACH.
[2019-08-06 21:59] VITALS: BP 170/82
[2019-08-06] MEDS ORDERED: FUROSEMIDE INJ 10 MG/ML 4 ML VIAL IV ONE (23:30)
[2019-08-06] MEDS ORDERED: HYDRALAZINE HCL 20 MG/ML VIAL IV PRN (23:30)
--- NOTE | 2019-08-06 23:31 | NUR ---
PAGED AND SPOKE WITH DR JEFFERY NOTIFIED PT'S ELEVATED BLOOD PRESSURE,NOTIFIED THAT PT IS C/O OF SHORTNESS OF BREATH UP ON MOVEMENT,ALSO NOTIFIED DR JEFFERY THAT PT IS REQUESTING MELATONIN.N/O'S RECEIVED AND ENTERED.
[2019-08-06] MEDS: MELATONIN 3 MG TAB PO SCH (23:59)
[2019-08-07] VITALS (7 sets, daily range): BP systolic 110–155; BP diastolic 47–84
[2019-08-07] MEDS: POTASSIUM CHLORIDE 20 MEQ TAB CR PO SCH ×2 (02:07)
[2019-08-07] MEDS ORDERED: MELATONIN1 MG PO (04:34)
[2019-08-07 06:39] LABS: CHOL/HDL RATIO 3.7 (3.0-3.6)
--- NOTE | 2019-08-07 07:00 | NUR ---
BEDSIDE SHIFT REPORT RECEIVED FROM THE LINE RIDER RN . PT DENIES NEEDS AT THIS TIME.
[2019-08-07 07:14] LABS: CREATINE KINASE 232 IU/L (29-168)
--- NOTE | 2019-08-07 07:17 | NUR ---
BEDSIDE SHIFT REPORT GIVEN TO ONCOMING NURSE.PT RESTING IN BED WITH NO S/S OF DISTRESS.
--- NOTE | 2019-08-07 07:30 | NUR ---
EDUCATED PT ABOUT FALL PRECAUTIONS. PT HAD HX OF FALLS. INFORMED PT TO CALL FOR ANY NEEDS. CALL LIGHT WITH IN EASY REACH. BED IS LOW AND LOCKED. BED ALARM IS ON. PT VERBALIZED UNDERSTANDING. PT DENIES NEEDS AT THIS TIME.
[2019-08-07 11:32] LABS: BASOPHILS % 0.3 % (0.0-1.0); EOSINOPHILS # (AUTO) 0.3 (0.0-0.4); EOSINOPHILS % 3.9 % (0.0-6.0); HEMATOCRIT 31.9 % (34.2-44.1); HEMOGLOBIN 10.5 g/dL (12.0-16.0); LYMPHOCYTES # (AUTO) 1.3 (1.0-3.2); LYMPHOCYTES % 18.8 % (18.0-39.1); MEAN CORPUSCULAR HEMOGLOBIN 29.6 pg (28-32); MEAN CORPUSCULAR HGB CONC 32.9 g/dL (31-35); MEAN CORPUSCULAR VOLUME 89.9 fL (81-99); MONOCYTES # (AUTO) 0.9 (0.2-0.8); MONOCYTES % 13.8 % (4.4-11.3); NEUTROPHILS # (AUTO) 4.2 (2.1-6.9); NEUTROPHILS % 63.1 % (38.7-80.0); PLATELET COUNT 210 x10e3/uL (140-360); RED BLOOD COUNT 3.55 x10e6/uL (3.6-5.1); RED CELL DISTRIBUTION WIDTH 13.3 % (11.7-14.4)
[2019-08-07] MEDS ORDERED: FUROSEMIDE INJ 10 MG/ML 4 ML VIAL IV NR (11:45)
[2019-08-07 11:50] LABS: ALANINE AMINOTRANSFERASE 28 IU/L (0-55); ALBUMIN 3.2 g/dL (3.5-5.0); ALBUMIN/GLOBULIN RATIO 0.8 (0.8-2.0); ALKALINE PHOSPHATASE 60 IU/L (40-150); ANION GAP 11.6 mmol/L (8-16); BLOOD UREA NITROGEN 15 mg/dL (7-26); BUN/CREATININE RATIO 14 (6-25); CALCIUM 9.9 mg/dL (8.4-10.2); CARBON DIOXIDE 32 mmol/L (22-29); CHLORIDE 99 mmol/L (98-107); CREATININE, SERUM 1.04 mg/dL (0.57-1.11); EST GLOMERULAR FILTRATION RATE 50 ML/MIN (60-); GLUCOSE 143 mg/dL (74-118); POTASSIUM 3.6 mmol/L (3.5-5.1); SODIUM 139 mmol/L (136-145)
[2019-08-07 12:28] LABS: CREATINE KINASE 210 IU/L (29-168)
[2019-08-07] MEDS ORDERED: FAMOTIDINE 20 MG TAB PO SCH (12:30)
--- NOTE | 2019-08-07 12:30 | History and Physical ---
CHIEF COMPLAINT: Shortness of breath with chest discomfort. HISTORY OF PRESENT ILLNESS: This is an 84-year-old woman, who presents to [facility] with a two month history of worsening shortness of breath. The patient states she has been to multiple hospitals because of this condition. The patient states from last three to four days has become worse. The patient states that her dyspnea on exertion with just minimal walking is worsened. Moreover, she complains of orthopnea. She denies any chest pain, but states at times her chest feels tight and pressure-like. In the emergency room initial cardiac enzymes were negative, namely troponin I and creatine kinase. The patient's B-type natriuretic peptide level was normal at 71, but she has a history of diastolic heart failure with preserved left ventricular ejection fraction and she suffers from obesity. In June 2019, the patient underwent echocardiogram, which revealed left ventricular ejection fraction of 50% to 60% but did reveal impaired left ventricular relaxation. The patient was also found to have moderate to severe aortic stenosis. The patient underwent a chest x-ray in the emergency room that revealed no acute thoracic abnormality. The patient was thus admitted. The patient underwent a 12-lead EKG in the emergency room that revealed poor R-wave progression in the anterior leads, otherwise unremarkable. The EKG did not reveal any findings consistent with acute myocardial ischemia or infarction. The patient was admitted for further evaluation and treatment. REVIEW OF SYSTEMS: GENERAL: The patient states she has gained weight lately, but she cannot quantify. No fever or chills. Complains of worsening fatigue. HEENT: No headaches. No vision changes. CARDIOVASCULAR/RESPIRATORY: Worsening shortness of breath with exertion as well as orthopnea over the last 3 to 4 days, but she states she has been chronically short of breath for the last two months. Denies any chest pain. Declines of chest pressure at times. GI: No nausea with chest discomfort. : No UTI symptoms. NEUROMUSCULAR: Denies any limb weakness or numbness, but she notes more swelling on lower legs. ALLERGIES: NO KNOWN DRUG ALLERGIES. FAMILY HISTORY: Mother at age 80 with pulmonary embolism. Father apparently at young age with liver cancer. The patient denies any family history of premature coronary artery disease. SOCIAL HISTORY: She is and lives with her son and ajmgxumw-[id number]-ccn. The patient states she has never smoked tobacco, but she has been exposed to secondhand tobacco smoke. The patient states she drinks one one glass of wine with meals. PAST MEDICAL HISTORY: 1. Hypertensive heart disease. 2. Chronic diastolic congestive heart failure (preserved left ventricular ejection fraction). 3. Moderate to severe aortic stenosis. 4. Obesity, BMI 35. 5. Dyslipidemia. 6. Gastritis/hiatal hernia. 7. Multilevel lumbar disk disease. 8. Left shoulder degenerative joint disease. MEDICATIONS: 1. Carvedilol 3.125 mg daily. 2. Furosemide 40 mg daily. 3. Gabapentin 300 g b.i.d. 4. Hydralazine 50 mg b.i.d. 5. Melatonin 1 mg at bedtime. 6. [place]-3 fish oil 1000 mg daily. 7. Pantoprazole 20 mg daily. 8. Potassium chloride 10 mEq daily. 9. Ranitidine 150 mg daily. 10. Simvastatin 10 mg at bedtime. 11. Carafate 1 g t.i.d. PAST SURGICAL HISTORY: 1. Bilateral total knee replacement (remotely). 2. Right shoulder arthroplasty. 3. Open right-sided kidney surgery to remove stone. 4. Lumbar spine surgery. PHYSICAL EXAMINATION: GENERAL: She is awake, alert, and fluent. She is slightly dyspneic. She has no acute distress, very pleasant. VITAL SIGNS: Height 5 feet 2 inches, weight 184 pounds, BMI is 35. The blood pressure did get as high as 172/87 in the emergency room, currently it is 110/47. The pulse is 64, respiratory rate is 22, oxygen saturation 95% on room air, temperature 96.1. INTEGUMENT: Skin is warm dry. No pallor, jaundice, or diaphoresis. HEENT: Anterior sclerae. Moist mucous membranes. NECK: Supple. No evidence of jugular venous distention. CARDIOVASCULAR: Distant heart sounds, regular rate and rhythm. The patient has a faint early systolic ejection murmur. She also has S3 gallop. LUNGS: She has faint crackles bilaterally. No rhonchi or wheezing. ABDOMEN: Obese, yet benign. EXTREMITIES: Trace edema in the bilateral legs neurologic intact. No gross focal deficits appreciated. DIAGNOSES: 1. Acute on chronic diastolic congestive heart failure (preserved left ventricular ejection fraction). 2. Moderate to severe aortic stenosis. 3. Hypertensive heart disease. 4. Hypokalemia. 5. Obesity BMI 35. PLAN: 1. Rule out myocardial infarction. 2. Intravenous furosemide. 3. We will optimize patient's congestive heart failure and medical management. 4. Consult Cardiology. 5. A 2D echocardiogram may need to be repeated to assess whether aortic stenosis is worsening. I spent 45 minutes in the care of this patient. MD SUDHEER Loya/YONI /[id number] MTDD
--- NOTE | 2019-08-07 15:42 | Consultation ---
DATE OF CONSULTATION: 08/07/2019 Cardiac Consultation. REASON FOR THE CONSULTATION: Leg swelling, shortness of breath. HISTORY: An 84-year-old lady, who came to the emergency room with worsening shortness of breath, leg edema. She went to [facility]. Her shortness of breath and leg swelling become worse. She complained of chest tightness. Her BNP was normal. However, she does have swelling of her lower extremities. Her latest echocardiogram showed at least wmyqwwuv-pv-dppchr aortic stenosis. Her ejection fraction is preserved. Her chest x-ray in the emergency room showed no pulmonary edema. Her lower extremities are swollen. Her EKG showing poor R-wave progression. Regardless, the patient admitted and cardiac consultation is obtained. I visited to the patient, but doing better after she got diuresis. Her cardiac enzymes came back as negative. Her lipid profile showed a triglycerides of 153, cholesterol of 137, HDL of 37, LDL of 69. She is more comfortable now. REVIEW OF SYSTEMS: GENERAL: No fever, no chills. No recent dental workup. HEENT: No headache. No vision problem. CARDIAC AND PULMONARY: Worsening shortness of breath, orthopnea, and swelling of the lower extremity, easy fatigability, cough, chest tightness. GI: No hematemesis. No melena. : No hematuria, no dysuria. MUSCULOSKELETAL: Back pain, knee pain, and leg pain. HEMATOLOGY: Easy bruising, but no bleeding. NEUROLOGICAL: No localized weakness. No numbness. No tingling. No seizure activity. No headaches. No TIA symptoms. HOME MEDICATIONS: Long list including, 1. Coreg 25 mg twice a day. 2. Gabapentin 300 mg twice a day. 3. Hydralazine 50 mg twice a day. 4. Cyclobenzaprine 20 mg a day. 5. Protonix 40 mg a day. 6. Potassium chloride 10 mEq a day. 7. Lasix 40 mg a day. 8. Simvastatin 20 mg a day. 9. [place]-3 one tablet a day. 10. Temazepam 30 mg a day. PAST MEDICAL HISTORY: 1. Bilateral total knee replacement. 2. Right shoulder arthroplasty. 3. Kidney surgery for stone. 4. Lumbar spine surgery. 5. Hypertensive heart disease. 6. Chronic on diastolic congestive heart failure. 7. Uvnwvkty-of-fawdcg aortic stenosis. 8. Obesity. 9. Hyperlipidemia. 10. Back pain and knee pain. 11. Chronic swelling of the lower extremities. SOCIAL HISTORY: She is a nonsmoker. She drinks a cup of wine with meals every now and then. She does not use any drugs. ALLERGIES: NONE. FAMILY HISTORY: Mother in her 80s with pulmonary embolism. Father at young age with liver cancer. No premature history of coronary artery disease. PHYSICAL EXAMINATION: VITAL SIGNS: Height of 5 feet 2 inches, weight of 194 pounds. BMI of 35, blood pressure 110/50, heart rate of 70, respiratory rate of 18. HEENT: Pupils are reactive. NECK: No elevation of jugular venous pulsation. No bruit. CHEST: Clear to auscultation and percussion. HEART: PMI 5th left intercostal space. Normal first and second heart sounds. Ejection systolic murmur of aortic stenosis is noted. ABDOMEN: Soft. No organomegaly. No abdominal bruits. EXTREMITIES: Bilateral knee scar. Edemas both lower extremities. NEUROLOGIC: Normal gross motor deficit. Able to move her extremities. LABORATORY DATA: Sodium of 134, potassium of 2.9, BUN of 14, and creatinine of 1. White blood cell count of 7.8, hemoglobin of 10.4, hematocrit of 31%, and platelet count of 207,000. Chest x-ray, cardiomegaly, but no volume overload and her serial cardiac enzymes are normal. IMPRESSION AND PLAN: 1. Zpoeduti-pw-akabxm aortic stenosis. 2. Acute on chronic diastolic congestive heart failure. 3. Chronic swelling of the lower extremities. 4. Bilateral knee surgery. 5. Hypertensive heart disease. 6. Electrolyte imbalance. 7. Obesity. 8. Doubt coronary artery disease and myocardial infarction. Cardiac bermudez, we will continue home medication. We will correct electrolytes. Care is discussed and explained to the patient. Time taking care of the patient approximately 50 minutes. MD BLANCA Currie/YONI /[id number]
[2019-08-07] MEDS: HYDRALAZINE HCL 25 MG TAB PO SCH (17:00)
[2019-08-07] MEDS: GABAPENTIN 300 MG CAP PO SCH (17:23)
--- NOTE | 2019-08-07 17:30 | NUR ---
PT REFUSED HYDRALAZINE 50 MG PO. PER THE PT, SHE IS WORRIED THAT HER BP WILL GO LOW.
[2019-08-07] MEDS: FAMOTIDINE 20 MG TAB PO SCH (18:23)
--- NOTE | 2019-08-07 19:00 | NUR ---
BEDSIDE SHIFT REPORT GIVEN TO THE WOOD[employer] INSTRUMENTS INSPECTOR RN. PT DENIED FURTHER NEEDS.
[2019-08-07] MEDS: MELATONIN 3 MG TAB PO SCH ×2 (20:39→21:00)
[2019-08-08] VITALS (7 sets, daily range): BP systolic 125–150; BP diastolic 64–76
[2019-08-08 05:10] LABS: BASOPHILS % 0.4 % (0.0-1.0); EOSINOPHILS # (AUTO) 0.4 (0.0-0.4); EOSINOPHILS % 5.1 % (0.0-6.0); HEMATOCRIT 32.1 % (34.2-44.1); HEMOGLOBIN 10.4 g/dL (12.0-16.0); LYMPHOCYTES # (AUTO) 1.6 (1.0-3.2); LYMPHOCYTES % 23.2 % (18.0-39.1); MEAN CORPUSCULAR HEMOGLOBIN 29.5 pg (28-32); MEAN CORPUSCULAR HGB CONC 32.4 g/dL (31-35); MEAN CORPUSCULAR VOLUME 91.2 fL (81-99); MONOCYTES # (AUTO) 1.1 (0.2-0.8); MONOCYTES % 15.1 % (4.4-11.3); NEUTROPHILS % 56.1 % (38.7-80.0); PLATELET COUNT 207 x10e3/uL (140-360); RED BLOOD COUNT 3.52 x10e6/uL (3.6-5.1); RED CELL DISTRIBUTION WIDTH 13.6 % (11.7-14.4)
[2019-08-08 05:47] LABS: ALBUMIN 3.2 g/dL (3.5-5.0); ALBUMIN/GLOBULIN RATIO 0.8 (0.8-2.0); ANION GAP 15.3 mmol/L (8-16); CALCIUM 9.4 mg/dL (8.4-10.2); CREATININE, SERUM 1.22 mg/dL (0.57-1.11); POTASSIUM 3.3 mmol/L (3.5-5.1)
--- NOTE | 2019-08-08 07:18 | NUR ---
REPORT GIVEN TO ONCOMING NURSE.WALKING ROUNDS MADE.PT RESTING IN BED WITH NO S/S OF DISTRESS.
[2019-08-08] MEDS: FUROSEMIDE 40 MG TAB PO SCH (09:15)
[2019-08-08] MEDS: GABAPENTIN 300 MG CAP PO SCH ×2 (09:15→16:51)
[2019-08-08] MEDS: POTASSIUM CHLORIDE 10MEQ EA PO SCH (09:15)
[2019-08-08] MEDS: HYDRALAZINE HCL 25 MG TAB PO SCH ×2 (09:15→16:51)
[2019-08-08] MEDS ORDERED: LACTULOSE SYRUP 20 GM/30 ML UDC PO PRN (09:15)
[2019-08-08] MEDS: PANTOPRAZOLE SOD 40 MG TABEC PO SCH (09:15)
[2019-08-08] MEDS: CARVEDILOL 3.125 MG TAB PO SCH (09:15)
[2019-08-08] MEDS: OMEGA 3 POLYUNSAT FATTY ACIDS 1000 MG SOFTGEL PO SCH (09:15)
[2019-08-08] MEDS: FAMOTIDINE 20 MG TAB PO SCH ×2 (09:15→16:51)
[2019-08-08] MEDS ORDERED: POTASSIUM CHLORIDE 20 MEQ TAB CR PO ONE (09:30)
[2019-08-08] MEDS: SUCRALFATE 1 GM TAB PO SCH ×2 (12:30→16:50)
--- NOTE | 2019-08-08 13:44 | NUR ---
Radiology department called and said "per our protocol there needs to be a 250 cc bolus before and after cat scan" due to elevated creatinine levels. Paged Dr. Daniels. Awaiting call back.
--- NOTE | 2019-08-08 14:08 | NUR ---
Spoke to Dr. Daniels about radiology protocol of bolus before and after CT. Will change to V/Q scan
--- NOTE | 2019-08-08 16:05 | NUR ---
Nutrition Screen Note RD Recommendation for Physician: -Continue cardiac diet per MD. Plan of Care: RD following, monitoring for tolerance and adequacy. Education provided. Nutrition reason for involvement: MST-5 Primary Diagnose(s): Exertional dyspnea, hypokalemia PMH: 1. Hypertensive heart disease. 2. Chronic diastolic congestive heart failure (preserved left ventricular ejection fraction). 3. Moderate to severe aortic stenosis. 4. Obesity, BMI 35. 5. Dyslipidemia. 6. Gastritis/hiatal hernia. 7. Multilevel lumbar disk disease. 8. Left shoulder degenerative joint disease. Ht: 62 in Wt: 194 lb BMI: 35.5 kg/m2 IBW:[address] Assessment: 08/08: 84 YOF admitted for exertional dyspnea, hypokalemia with PMH listed above. Pt was seen resting in bed. Pt reports that she is sometimes afraid to eat sometimes because it is hard to breathe. She reported she had no N/V, stated she did have constipation but was given a stool softener. Pt reported she was dealing with gases. Pt did not mention any weight loss, pt was recently here in Jul and Jun and was still 194 lbs suggesting no weight loss. Pt reported no chewing or swallowing issues as well as any food allergies. Pt accepted education and was given an educational handout. Chart reviewed. Labs and meds reviewed. Will continue to monitor. Current Diet: cardiac Malnutrition Evaluation (08/08) The patient does not meet criteria for a specified degree of malnutrition at this time. Will re-evaluate at follow-up as appropriate. Diet Education Needs Assessment: Diet education indicated, pt accepted. Learner(s): pt Barriers: none Cultural/Language Modifications: none Readiness: acceptance Method: handout, discussion Topics: Low Na diet Understanding/Compliance: verbalized understanding, anticipate fair compliance Nutrition Care Level: low Signed: Anum Fermin, RD, LD
[2019-08-08] MEDS: DOCUSATE SODIUM 100 MG CAP PO SCH (16:51)
--- NOTE | 2019-08-08 18:28 | NUR ---
Patient left the floor to have VQ scan
[2019-08-08] MEDS: MELATONIN 3 MG TAB PO SCH (20:01)
--- NOTE | 2019-08-08 20:30 | Diagnostic Imaging Report ---
Ventilation/perfusion lung scan Clinical Information: 84 F with bilateral leg swelling and acute onset SOB Comparison: Chest radiograph 08/06/2019 Discussion: Xenon-133 gas 12.6 mCi was administered via inhalation. Dynamic images of the lungs in the posterior projection were obtained through single breath, equilibrium, and washout phases. Distribution of tracer activity is irregular throughout the lungs. There are no segmental ventilatory defects. Washout of tracer shows diffuse, severe delay with diffuse air trapping. Perfusion images of the lungs were obtained in multiple projections following intravenous administration of approximately 6.2 mCi of Tc-99m MAA. Distribution of tracer is irregular throughout the lungs. The contours of the lungs are well demarcated. There are no segmental perfusion defects of any size. The perfusion images are well-matched to the ventilation images. The cardiomediastinal silhouette is unremarkable. Impression: 1. Scan findings represent a VERY LOW probability for acute pulmonary embolic disease based on the PIOPED II criteria. 2. Scan evidence of obstructive lung disease. Signed by: Dr. Vivian Grimes M.D. on 08/08/2019 8:26 PM
[2019-08-08] MEDS ORDERED: SIMVASTATIN 20 MG TAB PO SCH (21:00)
[2019-08-09] VITALS: BP 157/71
[2019-08-09 04:00] VITALS: BP 155/66
[2019-08-09 05:29] LABS: ANION GAP 14.3 mmol/L (8-16); CALCIUM 9.5 mg/dL (8.4-10.2); CREATININE, SERUM 1.1 mg/dL (0.57-1.11); POTASSIUM 3.3 mmol/L (3.5-5.1)
[2019-08-09 06:06] LABS: FOLATE 15.9 ng/mL (7.0-15.4)
[2019-08-09 06:07] LABS: FERRITIN 69.6 ng/mL (4.63-204.00)
[2019-08-09 08:00] VITALS: BP 155/66
[2019-08-09] MEDS ORDERED: MAGNESIUM HYDROXIDE 30 ML UDC PO PRN (08:45)
[2019-08-09] MEDS: DOCUSATE SODIUM 100 MG CAP PO SCH (09:00)
[2019-08-09 09:01] VITALS: BP 119/64
[2019-08-09] MEDS: HYDRALAZINE HCL 25 MG TAB PO SCH (09:05)
[2019-08-09] MEDS: PANTOPRAZOLE SOD 40 MG TABEC PO SCH (09:05)
[2019-08-09] MEDS: POTASSIUM CHLORIDE 10MEQ EA PO SCH (09:05)
[2019-08-09] MEDS: SUCRALFATE 1 GM TAB PO SCH ×2 (09:05→11:30)
[2019-08-09] MEDS: LACTULOSE SYRUP 20 GM/30 ML UDC PO SCH ×3 (09:05→14:00)
[2019-08-09] MEDS: FUROSEMIDE 40 MG TAB PO SCH (09:05)
[2019-08-09] MEDS: CARVEDILOL 3.125 MG TAB PO SCH (09:05)
[2019-08-09] MEDS: FAMOTIDINE 20 MG TAB PO SCH (09:05)
[2019-08-09] MEDS: GABAPENTIN 300 MG CAP PO SCH (09:05)
[2019-08-09] MEDS: OMEGA 3 POLYUNSAT FATTY ACIDS 1000 MG SOFTGEL PO SCH (09:05)
[2019-08-09] MEDS ORDERED: POTASSIUM CHLORIDE 20 MEQ TAB CR PO ONE (09:20)
--- NOTE | 2019-08-09 11:25 | NUR ---
Dr. Harris is here making rounds. He said patient is clear to have EGD
[2019-08-09] MEDS ORDERED: METOCLOPRAMIDE HCL 10 MG/2ML VIAL IV ONE (11:55)
[2019-08-09 12:21] VITALS: BP 152/73
--- NOTE | 2019-08-09 14:10 | NUR ---
Patient left the floor for EGD
[2019-08-09] MEDS ORDERED: BENZOCAINE/TETRACAINE/BUTAMBEN AERO SPRAY 56 GM CAN ONE (14:39)
[2019-08-09] MEDS ORDERED: POTASSIUM CHLORIDE 20 MEQ TAB CR PO STA (15:17)
--- NOTE | 2019-08-09 15:18 | NUR ---
Received recovery report from TIMI Castro. Patient is s/p EGD and coming back to room 204
--- NOTE | 2019-08-09 15:27 | NUR ---
Dr. Daniels is here making rounds, I told him the results of the EGD. He said patient can dc home after coming back to the floor.
--- NOTE | 2019-08-09 15:51 | NUR ---
IMM letter delivered and explained to pt. She verbalized understanding. Signed copy placed in chart. Copy to pt.
--- NOTE | 2019-08-09 16:45 | NUR ---
Discharge instructions were given to the patient. She verbalized understanding.
[2019-08-09 16:50] VITALS: BP 153/71
--- NOTE | 2019-08-09 17:15 | NUR ---
Patient is sitting up in chair in the room, eating dinner, she is waiting for her ride home to arrive. She has no complaints at this time.
--- NOTE | 2019-08-09 17:17 | Operative Report ---
DATE OF PROCEDURE: 08/09/2019 SURGEON: Jad Bloom MD PROCEDURE: Esophagogastroduodenoscopy with biopsies. INDICATION FOR EGD: Postprandial bloating, history of Gonzalez's esophagus. MEDICATIONS: The patient was done under MAC, please see anesthesiologist's note. PROCEDURE IN DETAIL: With the patient in left lateral decubitus position, a flexible fiberoptic Olympus gastroscope was introduced into the esophagus under direct visualization without any difficulty. There was some patchy erythema noted in distal esophagus. The scope was then advanced with ease into the stomach traversing a small sliding hiatal hernia. Mucosa overlying the antrum and the body revealed some patchy erythema and jnek-hp-acljyugt edema and biopsies were obtained, sent to stain for H pylori. The pylorus was of normal contour and shape, it was intubated with ease and the scope was advanced all the way to the second portion of the duodenum. The scope was then withdrawn slowly. Mucosa overlying the proximal second portion and the duodenal bulb appeared to be within normal limits. The scope was then withdrawn back into the stomach and retroflexed. Mucosa overlying the fundus and cardia appeared to be within normal limits. The scope was then straightened out, it was subsequently withdrawn. The patient tolerated the procedure well. IMPRESSION: 1. Distal esophagitis. 2. Small sliding hiatal hernia. 3. Gastritis, biopsied. Biopsies sent to stain for Helicobacter pylori. PLAN: Follow up histology. Continue PPI therapy. Jad Bloom MD [facility] [place]/MODL /[id number] cc: Nahun Daniels MD
--- NOTE | 2019-08-09 18:15 | NUR ---
Patient left the floor via wheelchair, she is discharged home.
[2019-08-09] MEDS ORDERED: LIDOCAINE HCL 2% LOCAL INJ 5 ML SDV VIAL INJ ONE (18:44)
[2019-08-09] MEDS ORDERED: PROPOFOL IV EMULSION 10 MG/ML 20 ML VIAL ONE (18:44)
--- NOTE | 2019-08-10 14:22 | Discharge Summary ---
ADDENDUM: The patient had a potassium replaced, apparently EGD report, the preliminary is esophagitis and small hiatal hernia. So the patient is going home today. Follow up with the primary care physician in a week, oxygen saturation 94%. The patient is doing well. MD TRISTIAN Soriano/YONI /[id number]
--- NOTE | 2019-08-10 15:07 | Discharge Summary ---
HOSPITAL COURSE: The patient is an 84-year-old female with past medical history positive for hypertension, congestive heart failure, chronic renal insufficiency. The patient came here with shortness of breath. She had a chest x-ray, which showed no evidence of any CHF. V/Q scan showed low probability for pulmonary embolism. She was found to have hypokalemia, potassium was replaced. We are going to recheck the potassium as an outpatient. She is also complaining of dysphagia. Dr. Jad Bloom did an endoscopy today. Endoscopy does not show any significant finding that required hospitalization, the patient might be able to go home. PHYSICAL EXAMINATION: HEART: Showed regular rate and rhythm. Normal S1 and S2 sound. LUNGS: Clear bilaterally. ABDOMEN: Soft. VITAL SIGNS: Blood pressure 152/73, temperature 99.7, heart rate 74 per minute, respiratory rate 18 per minute, and oxygen saturation 94%. LABORATORY DATA: On the blood work, we have a CBC; white blood count 7.04, hemoglobin 10.4, hematocrit 32.1, and platelet count 207,000. On the BMP; sodium 140, potassium 3.3, chloride 99, CO2 of 30, BUN 16, creatinine 1.10, glucose 106, estimated GFR is 47, magnesium is 1.6, iron 43, total iron binding capacity 290, transferrin 207, ferritin 69.60, vitamin B12 of 913, and folic acid 15.9. The patient had a serum protein electrophoresis, which is still pending. FINAL IMPRESSION: 1. Dyspnea, most likely secondary to anxiety. The patient has no evidence of any pulmonary issues right now. 2. Hypokalemia. Potassium will be replaced. 3. Constipation. 4. Chronic diastolic congestive heart failure. 5. Hypertensive heart disease. 6. Chronic renal failure, stage 2 to 3. 7. Aortic stenosis. 8. Sick sinus syndrome. PLAN OF TREATMENT: The patient going to have the potassium replaced today of 40 mEq x1 and continue carvedilol 3.125 mg daily, Colace 100 mg twice a day, Pepcid 20 mg twice a day, furosemide 40 mg daily, gabapentin 300 mg twice a day, and hydralazine 50 mg twice a day. She is also taking lactulose 20 g twice daily and lactulose 20 g q. 4 hours as needed. Continue melatonin 3 mg at bedtime. Metoclopramide has been discontinued. She has one dose of 10 mg IV push given. [place]-3 polyunsaturated fatty acids 1000 mg daily. Continue Protonix 40 mg daily. Continue potassium chloride 10 mEq daily. Continue with simvastatin 10 mg daily. Continue Carafate 1 g before the meals. tentative discharge summary depending on results of the EGD today and follow up with the primary care physician in a week if the patient refers serum protein electrophoresis. MD TRISTIAN Soriano/YONI /[id number]
== END 2019-08-09 18:05 | disposition home or self-care (01) | DRG 306 ==
LOC: ER 18:09 → ERHOLD 21:11 → MED/SURG2 21:37 → OBSVTOIN 08-07 11:32
PROVIDERS: ADMIT Internal Medicine; ATTEND Internal Medicine
PROC: 0DB78ZX Excision of Stomach, Pylorus, Via Natural or Artificial Opening Endoscopic, Diagnostic (ICD-10-PCS; principal; 2019-08-09 14:32)
DX: I35.0 Nonrheumatic aortic (valve) stenosis (principal); I50.33 Acute on chronic diastolic (congestive) heart failure; I13.0 Hypertensive heart and chronic kidney disease with heart failure and stage 1 through stage 4 chronic kidney disease, or unspecified chronic kidney disease; F41.9 Anxiety disorder, unspecified; E87.6 Hypokalemia; K59.00 Constipation, unspecified; N18.3 Chronic kidney disease, stage 3 (moderate); I49.5 Sick sinus syndrome; R13.10 Dysphagia, unspecified; E87.8 Other disorders of electrolyte and fluid balance, not elsewhere classified; K29.70 Gastritis, unspecified, without bleeding; K44.9 Diaphragmatic hernia without obstruction or gangrene; E78.5 Hyperlipidemia, unspecified; Z96.653 Presence of artificial knee joint, bilateral; M19.012 Primary osteoarthritis, left shoulder
CPT/HCPCS: 36415; 43239; 71045; 78582; 80048; 80053; 80061; 81001; 82550; 82553; 82607; 82728; 82746; 82948; 83540; 83735; 83880; 84165; 84443; 84466; 84484; 85025; 85045; 85610; 85730; 87086; 88305; 88312; 93005; 93306; 93970; 99284; A9540; A9558; G0378; J1940; J2001; J2765

== ENCOUNTER 2022-07-03 14:16 | Emergency (ER) | payer MEDICARE ==
[~2022-07-03] VITALS: Ht 157.5 cm; Wt 86.2 kg
[~2022-07-03 14:16] MED LIST changes: +CARVEDILOL3.125 MG PO; +ESIDRIX25 MG PO; +FUROSEMIDE40 MG PO; +KLOR-CON 1010 MEQ PO; +MELATONIN1 MG PO; +PANTOPRAZOLE SO20 MG PO; +SIMVASTATIN10 MG PO
[2022-07-03 14:57] LABS: BASOPHILS % 0.3 % (0.0-1.0); EOSINOPHILS # (AUTO) 0.1 (0.0-0.4); EOSINOPHILS % 1.3 % (0.0-6.0); HEMATOCRIT 37.7 % (34.2-44.1); HEMOGLOBIN 12.2 g/dL (12.0-16.0); MEAN CORPUSCULAR HGB CONC 32.4 g/dL (31-35); MEAN CORPUSCULAR VOLUME 92.6 fL (81-99); MONOCYTES # (AUTO) 0.8 (0.2-0.8); MONOCYTES % 10.8 % (4.4-11.3); NEUTROPHILS # (AUTO) 3.3 (2.1-6.9); NEUTROPHILS % 45.5 % (38.7-80.0); PLATELET COUNT 192 x10e3/uL (140-360); RED BLOOD COUNT 4.07 x10e6/uL (3.6-5.1)
[2022-07-03 15:26] LABS: ALANINE AMINOTRANSFERASE 21 IU/L (0-55); ALBUMIN 3.7 g/dL (3.5-5.0); ALBUMIN/GLOBULIN RATIO 0.9 (0.8-2.0); ALKALINE PHOSPHATASE 67 IU/L (40-150); ANION GAP 11.9 mmol/L (8-16); BLOOD UREA NITROGEN 16 mg/dL (7-26); BUN/CREATININE RATIO 19 (6-25); CALCIUM 9.4 mg/dL (8.4-10.2); CARBON DIOXIDE 28 mmol/L (22-29); CHLORIDE 102 mmol/L (98-107); CREATINE KINASE 66 IU/L (29-168); CREATININE, SERUM 0.86 mg/dL (0.57-1.11); GLUCOSE 89 mg/dL (74-118); POTASSIUM 3.9 mmol/L (3.5-5.1); SODIUM 138 mmol/L (136-145)
== END 2022-07-03 17:32 | disposition home or self-care (01) ==
LOC: ER 14:41
DX: R07.89 Other chest pain (principal); G43.909 Migraine, unspecified, not intractable, without status migrainosus; R55 Syncope and collapse; M25.571 Pain in right ankle and joints of right foot; F41.9 Anxiety disorder, unspecified; I10 Essential (primary) hypertension; I50.9 Heart failure, unspecified; K21.9 Gastro-esophageal reflux disease without esophagitis; E78.5 Hyperlipidemia, unspecified; M54.9 Dorsalgia, unspecified; G89.29 Other chronic pain; R94.31 Abnormal electrocardiogram [ECG] [EKG]
CPT/HCPCS: 36415; 70450; 71045; 80053; 82550; 82553; 83880; 84484; 85025; 93005; 99283